=== PATIENT | male | born 1955 | race Caucasian/White ===

== ENCOUNTER → 2017-09-19 | Outpatient (CLI) | payer OTHER ==
--- NOTE | 2017-09-20 11:54 | US ---
Procedure: US SCROTUM CLINICAL HISTORY: DISORDER OF MALE GENITAL ORGANS, UNSPECIFIED Exam Date: 09/19/2017 9:41 AM CDT Ordering clinician: ELIZABETH Nelson COMPARISON: None available. TECHNIQUE: Ultrasound images of the scrotum was performed with ryder-scale and color doppler. FINDINGS: Small subcutaneous seroma seen within the region of bleeding. The right testis is normal in size and morphology. The left testis is normal in size and morphology. There is no intratesticular abnormality. Testicular vascularity is symmetric and within normal limits. The epididymis is normal in appearance bilaterally. There is no hydrocele or varicocele. IMPRESSION: Small subcutaneous seroma within the clinical area of concern. Otherwise, unremarkable testicular ultrasound. Electronically signed by: Ronak Russell MD 09/20/2017 11:53 AM CDT
== END | disposition home or self-care (01) ==
LOC: LAB.O 09:12
PROVIDERS: ATTEND Nurse Practitioner Family
DX: N50.9 Disorder of male genital organs, unspecified (principal)

== ENCOUNTER → 2017-09-24 | Outpatient (CLI) | payer OTHER | LOC: YCFC.O 10:41 | DX: D72.829 Elevated white blood cell count, unspecified (principal) ==

== ENCOUNTER → 2017-09-30 | Outpatient (CLI) | payer OTHER | END | disposition home or self-care (01) | LOC: LAB.O 13:24 | DX: D72.829 Elevated white blood cell count, unspecified (principal) ==

== ENCOUNTER → 2017-10-14 | Outpatient (CLI) | payer OTHER ==
--- NOTE | 2017-10-16 10:07 | RAD ---
EXAM DESCRIPTION: Chest,2 Views CLINICAL HISTORY: ELEVATED WHITE BLOOD CELL COUNT COMPARISON: None Available. FINDINGS: Frontal and lateral views of the chest. Patient is rotated to right. Cardiomediastinal silhouette and pulmonary vascularity are within normal limits. Lungs are clear without focal consolidations. Bilateral costophrenic angles are sharp. No pneumothorax. Visualized osseous structures show no destructive lesions. IMPRESSION: No radiographic evidence for acute cardiopulmonary process. Electronically signed by: Cristopher Escobar MD 10/16/2017 10:06 AM [facility]
== END | disposition home or self-care (01) ==
LOC: RAD 14:26
DX: D72.829 Elevated white blood cell count, unspecified (principal)

== ENCOUNTER → 2017-11-15 | Outpatient (CLI) | payer OTHER ==
--- NOTE | 2017-11-19 09:21 | CT ---
EXAM DESCRIPTION: Chest w/Contrast (accession [id number]), Abdomen/Pelvis w/wo Contrast (accession [id number]), Soft Tissue Neck w/Contrast (accession [id number]) CLINICAL HISTORY: 62 years Male, ELEVATED WHITE BLOOD CELL COUNT, LYMPHOCYTOSIS COMPARISON: None. TECHNIQUE: This exam was performed according to our departmental dose-optimization program, which includes automated exposure control, adjustment of the mA and/or kV according to patient size and/or use of iterative reconstruction technique. Bolus enhanced CT evaluation of the neck and chest with contrast enhancement with MPR reformatted images with CT examination of the abdomen and pelvis without and with oral and IV contrast enhancement utilizing nonionic contrast. FINDINGS: Enhanced examination of the neck demonstrates degenerative changes and dextroscoliosis of the cervical spine with multilevel degenerative disc narrowing and anterior spurring and posterior bony ridging. C2 and C3 vertebral bodies are fused anteriorly and posteriorly. Soft tissue images demonstrate no evidence of paraspinous or prevertebral mass or swelling. Examination was performed from just below the skull base to the thoracic inlet with the lower portions of the parotid glands and the submandibular and thyroid glands normal. No epiglottic abnormality is noted and no anterior or posterior triangle pathologic adenopathy noted. Thoracic inlet is unremarkable. Enhanced CT evaluation of the chest demonstrates moderate changes of centrilobular emphysema in the upper lung riley. 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 The thoracic inlet superior and middle mediastinum as well as both monique show no evidence abnormal adenopathy. No infiltrates or masses or effusions or inflammatory changes are seen. No abnormal cavitary lesions are noted. CT of the abdomen and pelvis demonstrates small benign centimeter and subcentimeter cyst involving the liver. The gallbladder and biliary system are normal. No solid hepatic or splenic masses are noted and the pancreas appears normal as well as the adrenal glands. Benign cystic disease involving the lower pole of the right kidney and mid pole of the left kidney is present without hydronephrosis or evident stone disease. Small and large bowel caliber is normal without obstruction or ileus or acute inflammatory process. Abdominal or pelvic ascites is not apparent. Within the pelvis the seminal vesicles and prostate and pelvic side millan are unremarkable with normal distention of the bladder. Tiny amount of curvature of the lumbar spine convex to the right with minimal degenerative changes noted. The right lower quadrant left lower quadrant are unremarkable with a small portion of a normal-appearing air-filled appendix noted. Tiny amount of mesenteric lymphadenopathy in the normal to upper normal size approaching 1.5 cm in length is present. Hepatic hilar or significant retroperitoneal lymphadenopathy is not apparent. IMPRESSION: 1. Mild scoliosis of the spine and modest cervical spine and milder thoracolumbar degenerative changes. 2. Essentially negative CT of the neck without significant adenopathy or mass. 3. Centrilobular emphysema in the upper lung riley with no acute inflammatory changes within the chest. 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 4. Mild mesenteric lymphadenopathy with numerous small subcentimeter and upper normal sized lymph nodes and scattered within the abdominal mesentery, a nonspecific finding but follow-up examination . Follow-up examination in 4-6 months is recommended. 5. Benign cystic disease of the liver and kidneys. Electronically signed by: Tl Moses MD 11/19/2017 9:20 AM [employer]
== END | disposition home or self-care (01) ==
LOC: CT 09:59
PROVIDERS: ATTEND Internal Medicine Hematology & Oncology
DX: D72.820 Lymphocytosis (symptomatic) (principal); D72.829 Elevated white blood cell count, unspecified

== ENCOUNTER → 2019-05-01 | Outpatient (CLI) | payer BC ==
--- NOTE | 2019-05-01 15:05 | RAD ---
EXAM DESCRIPTION: Hip Bilateral CLINICAL HISTORY: Hip Pain COMPARISON: None. TECHNIQUE: Bilateral hips FINDINGS: Examination of the right hip reveals no bone joint or soft tissue abnormality. Examination of the left hip reveals no bone joint or soft tissue abnormality. IMPRESSION: Normal bilateral hips. Electronically signed by: Cristopher Malagon MD 05/01/2019 3:03 PM CDT
--- NOTE | 2019-05-01 15:06 | RAD ---
EXAM DESCRIPTION: Abdomen Flat Upright CLINICAL HISTORY: Abdomen pain COMPARISON: None. TECHNIQUE: AP supine and upright views the abdomen FINDINGS: The bowel gas pattern is unremarkable. There is a moderate amount of stool seen throughout the colon. No organomegaly is detected. No free air is observed. The lung bases are clear. IMPRESSION: Exam reveals moderate amount of stool in the colon. Exam is otherwise unremarkable. Electronically signed by: Cristopher Malagon MD 05/01/2019 3:04 PM CDT
== END ==
LOC: LAB.O 08:25
PROVIDERS: ATTEND Family Medicine
DX: K59.01 Slow transit constipation (principal); E78.00 Pure hypercholesterolemia, unspecified; M25.551 Pain in right hip; M25.552 Pain in left hip

== ENCOUNTER 2019-08-05 05:51 | Day surgery (SDC) | payer BC ==
[2019-08-05] MEDS ORDERED: LACTATED RINGERS 1,000 ML ONE (05:59)
[2019-08-05] MEDS ORDERED: LACTATED RINGERS 1,000 ML IVS ONE (08:02)
--- NOTE | 2019-08-05 09:17 | OP ---
DATE OF PROCEDURE: 08/05/19 PREPROCEDURE DIAGNOSIS: 1. Average risk colorectal cancer screening. This is the patient's first colonoscopy. POSTPROCEDURE DIAGNOSIS: PROCEDURE: 1. Colonoscopy with snare polypectomy. SURGEON: Markos Grant MD. SEDATION: Monitored anesthesia care. ESTIMATED BLOOD LOSS: Less than 5 mL. PROCEDURE: Informed consent was obtained prior to sedation. The preprocedure cardiopulmonary assessment was satisfactory. The patient was brought to the Endoscopy Suite and placed in the left lateral decubitus position. The patient was then sedated by the anesthesia team. Digital rectal and perianal exams were normal. The tip of the Olympus colonoscope was inserted into the rectum and advanced under direct visualization to the cecum as identified by the presence of the appendiceal orifice and ileocecal valve. Preparation of the colon was good. The endoscope was slowly withdrawn. In the ascending colon just proximal to the ileocecal valve, there was a 2 mm sessile polyp. This was resected with piecemeal hot snare polypectomy. In the transverse colon, there were two 1 cm sessile polyps. These were resected with hot snare polypectomy and retrieved. In the rectum, small non-bleeding internal hemorrhoids were seen on retroflexion of the anal verge. The endoscope was withdrawn and the procedure terminated. RECOMMENDATION: 1. Discharge the patient home with escort. 2. Resume regular diet. 3. Continue present medications. 4. Followup pathology. 5. Repeat colonoscopy in 6 months due to piecemeal polypectomy. #[id number] MTDD
[2019-08-05] MEDS ORDERED: PROPOFOL 200 MG/20 ML VIAL IV ONE (10:00)
[2019-08-05] MEDS ORDERED: LIDOCAINE 1% 10 ML VIAL INJ ONE (10:00)
== END 2019-08-05 10:15 | disposition home or self-care (01) ==
LOC: AMB 05:51
PROVIDERS: ATTEND Internal Medicine Gastroenterology
DX: Z12.11 Encounter for screening for malignant neoplasm of colon (principal); D12.2 Benign neoplasm of ascending colon; D12.3 Benign neoplasm of transverse colon; E78.00 Pure hypercholesterolemia, unspecified; Z87.891 Personal history of nicotine dependence
CPT/HCPCS: 00812; 45385; J3490; J7120

== ENCOUNTER → 2019-08-13 | Outpatient (CLI) | payer BC | LOC: LAB.O 08:18 | PROVIDERS: ATTEND Family Medicine | DX: E78.5 Hyperlipidemia, unspecified (principal) ==

== ENCOUNTER → 2019-09-22 | Outpatient (CLI) | payer BC | LOC: GMAL 11:18 | PROVIDERS: ATTEND Family Medicine | DX: R53.82 Chronic fatigue, unspecified (principal) ==

== ENCOUNTER 2020-07-13 05:33 | Day surgery (SDC) | payer BC ==
[2020-07-13] MEDS ORDERED: LACTATED RINGERS 1,000 ML ONE (06:29)
[2020-07-13] MEDS ORDERED: PROPOFOL 200 MG/20 ML VIAL IV ONE (07:00)
[2020-07-13] MEDS ORDERED: LIDOCAINE 1% 10 ML VIAL INJ ONE (07:00)
--- NOTE | 2020-07-13 09:06 | OP ---
DATE OF PROCEDURE: 07/13/20 PREPROCEDURE DIAGNOSIS: 1. History of colonic polyps. Last colonoscopy was 6 months ago with piecemeal resection of a 2 cm sessile polyp in the ascending colon. POSTPROCEDURE DIAGNOSIS: 1. Colonic polyp. 2. Ileitis. PROCEDURE: 1. Colonoscopy with biopsy and snare polypectomy. SURGEON: Markos Grant MD. SEDATION: Monitored anesthesia care. ESTIMATED BLOOD LOSS: Less than 5 mL. COMPLICATIONS: None. PROCEDURE: Informed consent was obtained prior to sedation. The preprocedure cardiopulmonary assessment was satisfactory. The patient was brought to the Endoscopy Suite and placed in the left lateral decubitus position. The patient was then sedated by the anesthesia team. Perianal exam revealed prolapsing hemorrhoids. Digital rectal exam was normal. The tip of the Olympus colonoscope was inserted into the rectum and advanced under direct visualization to the terminal ileum. It was then slowly withdrawn. Preparation of the colon was good. The terminal ileum showed multiple small ulcerations with erythema. Biopsies were taken with cold forceps of these ulcerations for histology. In the mid transverse colon, there was a 15 mm sessile polyp. This was resected with hot snare polypectomy and retrieved. A retroflexed view of the anal verge showed small, non-bleeding internal hemorrhoids. The endoscope was withdrawn and the procedure terminated. RECOMMENDATION: 1. Discharge the patient home with escort. 2. Resume previous diet. 3. Resume home medications. 4. Followup pathology. 5. Surveillance colonoscopy in 3 years. #[id number] MTDD
[2020-07-13 09:41] VITALS: BP 96/46; TEMP 96.6; O2SAT 99
== END 2020-07-13 09:30 | disposition home or self-care (01) ==
LOC: AMB 05:33
PROVIDERS: ATTEND Internal Medicine Gastroenterology
DX: C91.10 Chronic lymphocytic leukemia of B-cell type not having achieved remission (principal); D12.3 Benign neoplasm of transverse colon; K52.9 Noninfective gastroenteritis and colitis, unspecified; K64.8 Other hemorrhoids; Z86.010 Personal history of colon polyps; Z79.82 Long term (current) use of aspirin
CPT/HCPCS: 00813; 45380; 45385; J3490; J7120

== ENCOUNTER → 2020-08-08 | Outpatient (CLI) | payer BC ==
--- NOTE | 2020-08-08 14:04 | CT ---
EXAM DESCRIPTION: Chest w/Contrast (accession [id number]), Abdomen/Pelvis w/Contrast (accession [id number]) CLINICAL HISTORY: Chronic lymphocytic leukemia COMPARISON: November 15, 2017 TECHNIQUE: Postcontrast CT images of the chest, abdomen, and pelvis are obtained using standard imaging protocol. This exam was performed according to our departmental dose-optimization program, which includes automated exposure control, adjustment of the mA and/or kV according to patient size and/or use of iterative reconstruction technique . FINDINGS: CT chest: Heart is mildly enlarged. Moderate coronary artery calcifications. Borderline axillary lymph nodes bilaterally are again seen measuring maximum 10 mm short axis unchanged in size and number. Less than 1 cm mediastinal and hilar lymph nodes. No pleural or pericardial effusion. Lungs are hyperinflated. Mild centrilobular emphysematous changes. No acute infiltrate or consolidation. No worrisome noncalcified pulmonary nodules. Calcified pulmonary nodules in the right upper lobe compatible with old granulomatous disease are stable. No aggressive bony lesions. Mild spondylitic changes of the spine. Levocurvature of the mid thoracic spine. Visualized lower neck shows no acute findings. CT abdomen pelvis: Several hepatic cysts are stable from previous. Spleen is normal size. The pancreas, adrenal glands, and gallbladder are unremarkable. Moderate vascular calcifications. Stable bilateral renal cortical cyst. No nephrolithiasis. No ureteral calcification or obstruction. Urinary bladder partly distended but unremarkable. Moderate prostate calcifications. The appendix is small and unremarkable. No small bowel obstruction or bowel wall thickening. Moderate fecal is aeration of the terminal ileum is seen with increased volume of stool in the right transverse colon. Surgical clips in the right aspect of the transverse colon are seen versus ingested radiopaque foreign body. No wall thickening. No significant diverticular disease. Mildly prominent lymph nodes in the mesentery of the right lower quadrant are seen. The largest measures short axis X mm unchanged from previous. No change in size or number of the lymph nodes.. Osseous structures show no aggressive bony lesions. Spondylitic changes of the spine are seen. IMPRESSION: Stable mildly prominent axillary lymph nodes bilaterally in patient with history of CLL. Coronary artery disease is again seen. Stable mild emphysematous changes to lungs. No acute findings on CT of the abdomen and pelvis. Stable lymphadenopathy in the mesentery of the abdomen mainly right lower quadrant compared to previous exam in a patient with CLL.. Stable hepatic and renal cortical cysts are seen. Electronically signed by: Phillip Esparza MD 08/08/2020 2:02 PM CDT
== END ==
LOC: CT 08:42
PROVIDERS: ATTEND Internal Medicine Hematology & Oncology
DX: C91.10 Chronic lymphocytic leukemia of B-cell type not having achieved remission (principal); J43.9 Emphysema, unspecified; N28.1 Cyst of kidney, acquired; K76.89 Other specified diseases of liver; I25.10 Atherosclerotic heart disease of native coronary artery without angina pectoris; R59.9 Enlarged lymph nodes, unspecified

== ENCOUNTER → 2020-09-21 | Outpatient (CLI) | payer BC ==
--- NOTE | 2020-09-21 16:10 | MRI ---
EXAM DESCRIPTION: Cervical Spine: MRI. CLINICAL HISTORY: 65 years Male CERVICAL DISC DISORDER WITH RADICULOPATHY CERVICOTHORACIC COMPARISON: None. TECHNIQUE: Multiplanar, high-field MRI, multiple sequences, non-contrast Cervical spine. FINDINGS: C2-C3: Rudimentary disc space that barely extends to the posterior cortex and not seen on the anterior cortex with near fusion of the C2 and C3 vertebral bodies. There is also incomplete fusion of the odontoid process of C2. Mean bilateral C2 and C3 pedicles are thickened resulting in moderate to severe narrowing of the bilateral neural foramina. Bilateral facet joints are completely fused. Widening of the spinal canal at the disc space level. C3-C4: Disc desiccation with anterior bulging abutting the posterior hypopharynx. Disc bulge abutting the ventral cord. Bilateral facet joints are unremarkable. Right uncinate spur and mild narrowing of the neural foramen. Left neuroforamen patent. Moderate canal narrowing. C4-C5: Disc desiccation anterior bulging and minimal disc space loss. Trace retrolisthesis. Tiny posterior midline bulge abutting the ventral cord. Left uncinate spur. Facet joints are unremarkable. Borderline left neural foraminal stenosis. Mild canal narrowing. Right neuroforamen patent. C5-C6: Advanced spondylosis and significant disc space loss on the left with disc spur complex and uncinate spur encroaching on the left neural foramen which is severely stenotic. Minimal hypertrophic arthrosis left facet joint. Right facet joint is negative. Hypertrophic uncinate spur on the right with borderline neural foraminal stenosis. Trace retrolisthesis. Posterior broad-based disc bulge with moderate canal narrowing. C6-C7: Moderate disc space loss with desiccation. Posterior disc spur complex abutting the cord. Trace retrolisthesis. Bilateral uncinate spurs. Moderate to severe narrowing right foramen and left neural foraminal stenosis. Mild arthrosis left facet joint. C7-T1: Disc desiccation with disc space maintained. Trace anterolisthesis. Mild narrowing of the right foramen. Mild hypertrophy of the left facet joint. Canal and left neuroforamen are patent. Normal signal in the T1-T2 disc with no bulging. Disc spaces preserved. Canal and neural foramina are patent. Facet joints are unremarkable. Spinal alignment convex C5-T1 dextroscoliosis.. No cord compression or cord edema. Atlantoaxial joint minimal inflammation and enlargement. Base of the cerebellar tonsils is above the level of the foramen magnum. Paravertebral soft tissues are negative.. Vertebral bodies are not compressed at any level. Normal marrow signal in the remaining vertebral bodies and the posterior elements. IMPRESSION: 1. Near fusion at the C2 and C3 vertebral bodies with small rudimentary disc space and does not reach the anterior cortex. Complete fusion of the facet joints. Thickening of the pedicles at both levels with moderate to severe narrowing of the neuroforamina. Widened canal diameter. Cervical vertebral body anomalies can be a cause of abnormal spinal biomechanics and a source of neck pain. C1 anomalies can be seen with this anomaly. Consider CT scan of the cervical spine to evaluate cranial occipital joint and the atlantooccipital joint. 2. Spondylolisthesis at several levels with right convex cervicothoracic scoliosis. Also multiple levels of the uncinate spurs and disc space loss and desiccated discs. 3. Advanced spondylosis on the left at C5-6 with severe left neural foraminal stenosis. Correlate for left C6 radiculopathy. 4. borderline left neural foraminal stenosis and left uncinate spur at C4-C5. Correlate for left C5 radiculopathy. 5. Please refer to FINDINGS for discussion the results at other disc space levels. Electronically signed by: Nikita Desir MD 09/21/2020 4:08 PM CDT
== END ==
LOC: MRI 10:58
PROVIDERS: ATTEND Family Medicine
DX: M50.10 Cervical disc disorder with radiculopathy, unspecified cervical region (principal); M50.13 Cervical disc disorder with radiculopathy, cervicothoracic region; M47.22 Other spondylosis with radiculopathy, cervical region; M43.12 Spondylolisthesis, cervical region; M41.9 Scoliosis, unspecified; M48.02 Spinal stenosis, cervical region; M43.22 Fusion of spine, cervical region; M25.78 Osteophyte, vertebrae

== ENCOUNTER → 2020-10-19 | Outpatient (CLI) | payer BC | LOC: GMAL 10:27 | PROVIDERS: ATTEND Family Medicine | DX: K92.2 Gastrointestinal hemorrhage, unspecified (principal) ==

== ENCOUNTER → 2020-11-09 | Outpatient (CLI) | payer BC | LOC: GMAL 14:39 | PROVIDERS: ATTEND Family Medicine | DX: D50.8 Other iron deficiency anemias (principal) ==

== ENCOUNTER → 2021-01-06 | Outpatient (CLI) | payer BC | LOC: LAB.O 13:25 | PROVIDERS: ATTEND Nurse Practitioner Family | DX: C91.10 Chronic lymphocytic leukemia of B-cell type not having achieved remission (principal) ==